=== PATIENT | female | born 2005 | race Caucasian/White ===

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

== ENCOUNTER → 2024-09-11 | Outpatient (CLI) | payer BC ==
--- NOTE | 2024-09-11 15:50 | US ---
EXAMINATION TYPE: US pelvic complete DATE OF EXAM: 09/11/2024 COMPARISON: NONE CLINICAL INDICATION: Female, 18 years old with history of N94.6 Painful menstrual periods; irregular cycles for years, G0 TECHNIQUE: TA. Transabdominal grayscale sonographic images of the pelvis were acquired. Doppler imaging: Not performed. FINDINGS: Date of LMP: 08/16/2024 EXAM MEASUREMENTS: Uterus: 8.4 x 4.9 x 3.3 cm Endometrial Stripe: 0.5 cm Right Ovary: 3.0 x 2.6 x 1.4 cm Left Ovary: 2.2 x 3.1 x 2.2 cm 1. Uterus: Anteverted wnl 2. Endometrium: wnl 3. Right Ovary: wnl 4. Left Ovary: wnl 5. Bilateral Adnexa: wnl 6. Posterior cul-de-sac: wnl IMPRESSION: 1. No evidence for acute process. 2. Endometrium within normal limits for thickness. [facility], , 09/11/2024 3:47 PM
== END | disposition home or self-care (01) ==
LOC: RADUSWWP 11:20
PROVIDERS: ATTEND Emergency Medicine
DX: N94.6 Dysmenorrhea, unspecified (principal)
CPT/HCPCS: 76856